=== PATIENT | female | born 1995 | race Caucasian/White ===

== ENCOUNTER 2018-11-08 12:21 | Emergency (ER) | payer OTHER, MEDICAID ==
[2018-11-08] MEDS ORDERED: Lactated Ringer 1,000 ML IV ONE ×3 (12:32→15:13)
[2018-11-08 12:47] LABS: % EOSINOPHILS 0.4 % (0.0-5.0); % LYMPHOCYTES 26.3 % (20.0-50.0); % MONOCYTES 4.1 % (2.0-10.0); % NEUTROPHILS 68.2 % (40.0-80.0); BASOPHILE ABSOLUTE 0.1 Th/cumm (0-0.2); EOSINOPHILE ABSOLUTE 0.1 Th/cmm (0.1-0.4); HEMATOCRIT 41.3 % (41.0-60); HEMOGLOBIN 13.7 gm/dL (12-16); LYMPHOCYTE ABSOLUTE 3.3 Th/cmm (1.5-3.0); MEAN CELL VOLUME 92.6 fl (81-100); MEAN CORPUSCULAR HEMOGLOBIN 30.8 pg (27.0-31.0); MEAN CORPUSCULAR HGB CONC 33.2 pg (28.0-36.0); MEAN PLATELET VOLUME 7.8 fl; MONOCYTE ABSOLUTE 0.5 Th/cmm (0.3-1.0); NEUTROPHILE ABSOLUTE 8.7 Th/cmm (1.8-8.0); PLATELET COUNT 339 Th/cmm (150-400); RED BLOOD COUNT 4.46 Mil/cmm (3.80-5.10); RED CELL DISTRIBUTION WIDTH 12.1 % (11.5-20.0); WHITE BLOOD COUNT 12.7 Th/cmm (4.8-10.8)
[2018-11-08 13:05] LABS: ALB/GLOB RATIO 1.6 (1.0-1.8); ALBUMIN 4.6 gm/dL (3.7-5.3); ALKALINE PHOSPHATASE 60 U/L (34-104); ANION GAP 18.6 (7.0-16.0); BILIRUBIN,TOTAL 0.5 mg/dL (0.3-1.0); BUN - UREA NITROGEN 7 mg/dL (7-25); CALCIUM SERUM 9.5 mg/dL (8.6-10.3); CARBON DIOXIDE 19.2 mEq/L (21.0-31.0); CHLORIDE 104 mEq/L (98-107); CREATININE - SERUM 0.8 mg/dL (0.6-1.2); GFR AFRICAN-AMERICAN > 60.0 ml/min (>90); GFR NON AFRICAN-AMERICAN > 60.0 ml/min; GLUCOSE 129 mg/dL (70-105); MAGNESIUM 1.7 mg/dL (1.9-2.7); PHOSPHOROUS 1.2 mg/dL (2.5-5.0); SGOT 12 U/L (13-39); SGPT/ALT 8 U/L (7-52); SODIUM SERUM 139 mEq/L (136-145); TOTAL PROTEIN,SERUM 7.4 gm/dL (6.0-8.3)
[2018-11-08 13:10] LABS: POTASSIUM SERUM 2.8 mEq/L (3.5-5.1)
[2018-11-08] MEDS ORDERED: Potassium Chloride 20 mEq ER Tab PO ONE ×2 (13:10→13:13)
--- NOTE | 2018-11-08 13:29 | ED Physician Chart ---
ED Chief Complaint/HPI - Patient Information Date Seen:: 11/08/18 Time Seen:: 12:42 Chief Complaint:: psychogenic seizure at xray dept History of Present Illness:: psychogenic seizure at xray dept she has never been postictal. when she came to our ER, she started yelling and swearing. Allergies:: Allergies Allergy/AdvReac Type Severity Reaction Status Date / Time gabapentin Allergy Verified 11/08/18 12:38 Vitals:: Vital Signs - 8 hr 11/08/18 12:42 Temp 98.4 F HR 109 RR 22 BP 143/80 O2 Sat % 100 Historian:: Patient, EMS, Family Member Review:: Nurse's Note Reviewed ED Review of Systems - Review of Systems General/Constitutional: No fever, No chills, No weight loss, No weakness, No diaphoresis, No edema, No loss of appetite Skin: No skin lesions, No rash, No bruising Head: No headache, No light-headedness Eyes: No loss of vision, No pain, No diplopia ENT: No earache, No nasal drainage, No sore throat, No tinnitus Neck: Neck pain, No swelling, No thyromegaly, No stiffness, No mass noted Cardio Vascular: No chest pain, No palpitations, No PND, No orthopnea, No edema Pulmonary: No SOB, No cough, No sputum, No wheezing GI: No nausea, No vomiting, No diarrhea, No pain, No melena, No hematochezia, No constipation, No hematemesis G/U: No dysuria, No frequency, No hematuria Musculoskeletal: No bone or joint pain, Back pain, No muscle pain Endocrine: No polyuria, No polydipsia Psychiatric: No prior psych history, No depression, No anxiety, No suicidal ideation Hematopoietic: No bruising, No lymphadenopathy Allergic/Immuno: No urticaria, No angioedema Neurological: No syncope, No focal symptoms, No weakness, No paresthesia, No headache, Seizure, No dizziness, No confusion, No vertigo ED Past Medical History - Past Medical History Obtainable: Yes Past Medical History: Seizures, Other (chronic back and neck pain and entire spine pain. Was getting an xray when she had a psychogenic seizure.) Family Medical History - Family Member Mother History Unknown: Yes ED Physical Exam - Physical Examination General/Constitutional: Awake, Well-developed, well-nourished, Alert, No distress, GCS 15, Non-toxic appearing, Ambulatory Other Gen/Cons comments:: yelling and swearing. not postictal at all. Head: Atraumatic Eyes: Lids, conjuctiva normal, PERRL, EOMI Skin: Nl inspection, No rash, No skin lesions, No ecchymosis, Well hydrated, No lymphadenopathy ENMT: External ears, nose nl, Lips, teeth, gums nl Other ENMT comments:: oral mucosa dry. Other Neck comments:: overly melodramatic that her entire spine is painful from her neck to her bottom. Respiratory: Nl effort/Exclusion, Clear to Auscultation, No Wheeze/Rhonchi/Rales Cardio Vascular: RRR, No murmur, gallop, rubs, NL S1 S2 GI: No tenderness/rebounding/guarding, No organomegaly, No hernia, Normal BS's, Nondistended, No mass/bruits, No McBurney tenderness : No CVA tenderness Extremities: No tenderness or effusion, Full ROM, normal strength in all extremities, No edema, Normal digits & nails Neuro/Psych: Alert/oriented, Normal sensory exam, Normal motor strength, Judgement/insight normal, Normal gait Other Neuro/Psych comments:: anxious Other Misc comments:: overly melodramatic that her entire spine is painful from her neck to her bottom. ED Labs/Radiology/EKG Results - Lab Results Results: Laboratory Tests 11/08/18 11/08/18 11/08/18 12:28 12:40 12:40 WBC 12.7 H RBC 4.46 Hgb 13.7 Hct 41.3 MCV 92.6 MCH 30.8 MCHC Differential 33.2 RDW 12.1 Plt Count 339 MPV 7.8 Neutrophils % 68.2 Lymphocytes % 26.3 Monocytes % 4.1 Eosinophils % 0.4 Basophils % 1.0 Sodium 139 Potassium 2.8 L* Chloride 104 Carbon Dioxide 19.2 L Anion Gap 18.6 H BUN 7 Creatinine 0.8 Est GFR ( Amer) > 60.0 Est GFR (Non-Af Amer) > 60.0 BUN/Creatinine Ratio 8.8 Glucose 129 H POC Glucose 101 Whole Bld Lactic Acid Calcium 9.5 Phosphorus 1.2 L Magnesium 1.7 L Total Bilirubin 0.5 AST 12 L ALT 8 Alkaline Phosphatase 60 Total Protein 7.4 Albumin 4.6 Globulin 2.8 Albumin/Globulin Ratio 1.6 Serum , Qual 11/08/18 11/08/18 12:40 12:40 WBC RBC Hgb Hct MCV MCH MCHC Differential RDW Plt Count MPV Neutrophils % Lymphocytes % Monocytes % Eosinophils % Basophils % Sodium Potassium Chloride Carbon Dioxide Anion Gap BUN Creatinine Est GFR ( Amer) Est GFR (Non-Af Amer) BUN/Creatinine Ratio Glucose POC Glucose Whole Bld Lactic Acid 6.04 H* Calcium Phosphorus Magnesium Total Bilirubin AST ALT Alkaline Phosphatase Total Protein Albumin Globulin Albumin/Globulin Ratio Serum , Qual NEGATIVE ED Assessment - Assessment General Assessment: spoke to [employer] Enma Pak who works with Dr. Cooper[facility] practice. Patient asked for narcotics. Patient was sent to the xray department where she had a psychogenic seizure. [facility] (where she has been admitted before) has no beds. [facility] has beds. Insurance person will fax the paper work to the hospital. ED Septic Shock - . Is Septic Shock (SBP<90, OR Lactate>4 mmol\L) present?: No - <6hrs of presentation: Vital Signs: Vital Signs - 8 hr 11/08/18 12:42 Temp 98.4 F HR 109 RR 22 BP 143/80 O2 Sat % 100 ED Reassessment (Disposition) - Reassessment Reassessment Condition:: Improved - Diagnosis Diagnosis:: Psychogenic seizures Low potassium of 2.8 Los phosphorous of 1.2 Chronic pain of the entire spine. - Patient Disposition Discharge/Transfer:: Acute Care (other hosp) Condition at Disposition:: Stable, Improved
[2018-11-08] MEDS ORDERED: Potassium Phosphate 20 MMOLE in Sodium Chloride 0.9% 250 ML IV ONE (14:00)
[2018-11-08 14:09] LABS: URINE SOURCE CATH
[2018-11-08 14:10] LABS: URINE BILIRUBIN NEGATIVE (NEGATIVE); URINE BLOOD NEGATIVE (NEGATIVE); URINE GLUCOSE (UA) NEGATIVE (NEGATIVE); URINE KETONE NEGATIVE (NEGATIVE); URINE LEUKOCYTE ESTERASE NEGATIVE (NEGATIVE); URINE NITRATE NEGATIVE (NEGATIVE); URINE PROTEIN NEGATIVE (NEGATIVE); URINE UROBILINOGEN 0.2 E.U./dL (0.2 - 1.0)
[2018-11-08 14:23] LABS: URINE CLARITY CLEAR (CLEAR); URINE COLOR YELLOW; URINE MICROSCOPIC INDICATED? YES
[2018-11-08 14:41] LABS: URINE BACTERIA 1+ /hpf (NONE SEEN); URINE EPITHELIAL CELLS FEW /lpf (FEW); URINE RBC 0-2 /hpf (0-5)
[2018-11-08] MEDS ORDERED: Morphine Sulfate 2 mg/mL 1mL Syr IV STA (21:28)
[2018-11-08] MEDS ORDERED: Morphine Sulfate 2 mg/mL 1mL Syr ONE (21:31)
== END 2018-11-08 21:40 | disposition short-term general hospital (02) ==
LOC: ER 12:21
DX: F44.5 Conversion disorder with seizures or convulsions (principal); M54.9 Dorsalgia, unspecified; G89.29 Other chronic pain; E83.39 Other disorders of phosphorus metabolism; E87.6 Hypokalemia; Z88.8 Allergy status to other drugs, medicaments and biological substances
CPT/HCPCS: 99285; 96365; 96366; 96375; 96376; 36415; 36416; 82948; 83605 ×2; 84443; 85025; 81001; 84703; 83735; 84100; 80053; J2270; J1885; J2060 ×2; 90799